=== PATIENT | male | born 1960 | race Caucasian/White ===

== ENCOUNTER 2016-10-24 23:15 | Emergency (ER) | payer OTHER ==
[2016-10-24] MEDS ORDERED: NS 0.9% 1000 ML* 1,000 ML IV ONE (23:24)
[2016-10-24] MEDS ORDERED: Ondansetron INJ* 2 MG/ML VIAL IV ONE (23:24)
[2016-10-24] MEDS ORDERED: Ondansetron INJ* 2 MG/ML VIAL ONE (23:25)
[2016-10-24 23:49] LABS: Hematocrit 27 % (42-52); Hemoglobin 8.6 g/dl (14.0-18.0); Mean Corpuscular HGB Conc 32 g/dl (31-36); Mean Corpuscular Hemoglobin 29 pg (27-31); Mean Corpuscular Volume 90 fL (80-94); Mean Platelet Volume 9 um3 (7.4-10.4); Red Blood Count 2.94 10^6/ul (4.0-5.4); Red Cell Distribution Width 15 % (10.5-15); White Blood Count 17.7 10^3/ul (3.5-10.8)
[2016-10-25 00:04] LABS: ALT 11 U/L (7-52); AST 9 U/L (13-39); Albumin 3.1 g/dL (3.2-5.2); Alkaline Phosphatase 73 U/L (34-104); Anion Gap 9 mmol/L (2-11); BUN/Creatinine Ratio 31.1 (8-20); Blood Urea Nitrogen 38 mg/dL (6-24); C Reactive Protein 8.76 mg/L (< 5.00); CO2 Carbon Dioxide 19 mmol/L (22-32); Calcium 8.1 mg/dL (8.6-10.3); Chloride 109 mmol/L (101-111); EGFR Non-African American 61.4 (>60); Globulin 2.3 g/dL (2-4); Glucose 205 mg/dL (70-100); Lipase < 10 U/L (11.0-82.0); Magnesium 1.8 mg/dL (1.9-2.7); Potassium 4.2 mmol/L (3.5-5.0); Sodium 137 mmol/L (133-145); Total Protein 5.4 g/dL (6.4-8.9)
--- NOTE | 2016-10-25 00:12 | ED ---
Dayana Fonseca SooYoung, scribed for Andreas Rosen MD on 10/24/16 at 2325 . 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 Associated sx: nausea. States he "doesn't feel good." According to , pt has been ill since 2300 last night, but blood in the vomit is new tonight. Occasional EToH use, 1-2x per month. Pt sees Dr. Del Angel. - History of Current Complaint Chief Complaint: EDGIBleed Stated Complaint: DIZZY Hx Obtained From: Patient, Family/Principal Consulting Engineer - , Medical Records Onset/Duration: Started Hours Ago, Still Present Current Severity: Severe Associated Signs and Symptoms: Positive: Hematemesis - Additional Pertinent History Primary Care Physician: BAR - Allergy/Home Medications Allergies/Adverse Reactions: Allergies Allergy/AdvReac Type Severity Reaction Status Date / Time Penicillins Allergy Unknown Unknown Verified 10/24/16 23:51 Reaction Details Atorvastatin AdvReac See Comment Verified 06/06/16 17:40 Codeine AdvReac Vomiting Verified 06/06/16 17:39 PMH/Surg Hx/FS Hx/Imm Hx Previously Healthy: No Endocrine/Hematology History: Reports: Hx Diabetes - pt reports boarderline, diet controlled Denies: Hx Anticoagulant Therapy, Hx Blood Disorders, Hx Blood Transfusions, Hx Bone Marrow Disease, Hx Systemic Lupus Erythematosus, Hx Sickle Cell Disease , Hx Thyroid Disease, Hx Anemia, Hx Unexplained Bleeding, Other Endocrine/ Hematological Disorders Cardiovascular History: Reports: Hx Angina, Hx Angioplasty - OM3 stent 2015, Hx Coronary Artery Disease, Hx Hypercholesterolemia, Hx Hypertension, Hx Peripheral Vascular Disease Denies: Hx Aneurysm, Hx Auto Implanted Cardiovert Defib, Hx Cardiac Arrest, Hx Cardiomegaly, Hx Congenital Heart Disease, Hx Congestive Heart Failure, Hx Deep Vein Thrombosis, Hx Embolism, Hx Hypotension, Hx Pacemaker/ICD, Hx Rheumatic Fever, Hx Valvular Heart Disease, Other Cardiovascular Problems/ Disorders Musculoskeletal History: Reports: Other Musculoskeletal History - right leg broken when young, one leg shorter than other Sensory History: Reports: Hx Contacts or Glasses Opthamlomology History: Reports: Hx Contacts or Glasses Infectious Disease History: Denies: Traveled Outside the [place] in Last 30 Days - Family History Known Family History: Positive: Hypertension - Social History Occupation: Employed Full-time Lives: With Family Alcohol Use: Occasionally Hx Substance Use: Yes Substance Use Type: Reports: Excessive Caffeine Hx Tobacco Use: Yes Smoking Status (MU): Heavy Every Day Tobacco Smoker Type: Cigarettes Have You Smoked in the Last Year: Yes Review of Systems Positive: Vomiting - hemetemesis, Nausea All Other Systems Reviewed And Are Negative: Yes Physical Exam Triage Information Reviewed: Yes Vital Signs On Initial Exam: Initial Vitals Temp Pulse Resp BP Pulse Ox 97.3 F 88 12 74/40 98 10/24/16 23:46 10/24/16 23:46 10/24/16 23:46 10/24/16 23:46 10/24/16 23:46 Vital Signs Reviewed: Yes Appearance: Positive: No Pain Distress, Ill-Appearing Skin: Positive: Warm, Pale Head/Face: Positive: Normal Head/Face Inspection Eyes: Positive: LUIS ENRIQUE ENT: Positive: Hearing grossly normal Neck: Positive: Supple Respiratory/Lung Sounds: Positive: Breath Sounds Present Cardiovascular: Positive: Tachycardia Abdomen Description: Positive: Soft, Other: - mild diffusev upper abd tenderness Bowel Sounds: Positive: Present - stool guaic positive Musculoskeletal: Positive: Strength/ROM Intact Neurological: Positive: Sensory/Motor Intact, Alert, Oriented to Person Place, Time Psychiatric: Positive: Affect/Mood Appropriate Diagnostics - Vital Signs Vital Signs Temp Pulse Resp BP Pulse Ox 10/24/16 23:46 97.3 F 88 12 74/40 98 - Laboratory Lab Results: Lab Results 10/24/16 10/24/16 10/24/16 Range/Units 23:35 23:35 23:35 WBC 17.7 H (3.5-10.8) 10^3/ul RBC 2.94 L (4.0-5.4) 10^6/ul Hgb 8.6 L (14.0-18.0) g/dl Hct 27 L (42-52) % MCV 90 (80-94) fL MCH 29 (27-31) pg MCHC 32 (31-36) g/dl RDW 15 (10.5-15) % Plt Count 289 (150-450) 10^3/ul MPV 9 (7.4-10.4) um3 Neut % (Auto) 71.1 (38-83) % Lymph % (Auto) 19.1 L (25-47) % [place] % (Auto) 6.8 (1-9) % Eos % (Auto) 2.5 (0-6) % Baso % (Auto) 0.5 (0-2) % Absolute Neuts (auto) 12.6 H (1.5-7.7) 10^3/ul Absolute Lymphs (auto) 3.4 (1.0-4.8) 10^3/ul Absolute Monos (auto) 1.2 H (0-0.8) 10^3/ul Absolute Eos (auto) 0.4 (0-0.6) 10^3/ul Absolute Basos (auto) 0.1 (0-0.2) 10^3/ul Absolute Nucleated RBC 0 10^3/ul Nucleated RBC % 0 Sodium 137 (133-145) mmol/L Potassium 4.2 (3.5-5.0) mmol/L Chloride 109 (101-111) mmol/L Carbon Dioxide 19 L (22-32) mmol/L Anion Gap 9 (2-11) mmol/L BUN 38 H (6-24) mg/dL Creatinine 1.22 H (0.67-1.17) mg/dL Est GFR ( Amer) 79.0 (>60) Est GFR (Non-Af Amer) 61.4 (>60) BUN/Creatinine Ratio 31.1 H (8-20) Glucose 205 H (70-100) mg/dL Lactic Acid 2.6 H* (0.5-2.0) mmol/L Calcium 8.1 L (8.6-10.3) mg/dL Magnesium 1.8 L (1.9-2.7) mg/dL Total Bilirubin 0.30 (0.2-1.0) mg/dL AST 9 L (13-39) U/L ALT 11 (7-52) U/L Alkaline Phosphatase 73 (34-104) U/L C-Reactive Protein 8.76 H (< 5.00) mg/L Total Protein 5.4 L (6.4-8.9) g/dL Albumin 3.1 L (3.2-5.2) g/dL Globulin 2.3 (2-4) g/dL Albumin/Globulin Ratio 1.3 (1-3) Lipase < 10 L (11.0-82.0) U/L Result Diagrams: 10/24/16 23:35 10/24/16 23:35 Lab Statement: Any lab studies that have been ordered have been reviewed, and results considered in the medical decision making process. - Radiology CXR Xray Interpretation: No Acute Changes Radiology Interpretation Completed By: ED Physician - EKG 1 EKG Rhythm: Sinus Rhythm Re-Evaluation - Re-Evaluation First Eval Comment: pt with ugi bleed, fluid resuscitated, no gi personal trainer. call to nori andrade who acceots pt for transfer GIGU Course/Dx - Diagnoses Provider Diagnoses: GI bleed - Physician Notifications Instructed by Provider To: Transfer Reason For Transfer: Specialty available at [facility] [place] but not personal trainer. - Critical Care Time Critical Care Time: 30-74 min Discharge - Discharge Plan Condition: Critical Disposition: TRANS HIGHER LVL OF CARE FAC Discharge Disposition Comment: Speciality (GI) not on-call Referrals: Tracey Younger [Primary Care Provider] - The documentation as recorded by the Dayana saxena SooYoung accurately reflects the service I personally performed and the decisions made by , Andreas Rosen MD.
[2016-10-25 04:21] LABS: Urine Bilirubin Negative (Negative); Urine Glucose Negative (Negative); Urine Nitrite Negative (Negative)
[2016-10-25 05:34] VITALS: BP 114/55
--- NOTE | 2016-10-25 07:16 | RAD ---
INDICATION: GI bleed COMPARISON: April 17, 2004 TECHNIQUE: An AP portable view obtained at 2355 hours is submitted. FINDINGS: Bones/Soft Tissues: There are no acute bony findings. Cardiomediastinal: The cardiomediastinal silhouette is normal. Lungs: There are no infiltrates. Pleura: There are no pleural effusions. Other: None IMPRESSION: NO ACTIVE DISEASE.
== END 2016-10-25 05:21 | disposition short-term general hospital (02) ==
LOC: ED 23:15
DX: K92.2 Gastrointestinal hemorrhage, unspecified (principal); K92.0 Hematemesis; R42 Dizziness and giddiness; R11.2 Nausea with vomiting, unspecified; F17.210 Nicotine dependence, cigarettes, uncomplicated
CPT/HCPCS: 36415; 71010; 80053; 81003; 83605; 83690; 83735; 85025; 86140; 86850; 86900; 86901; 86922; 93005; 96374; 96375; 99285; J2405; P9016

== ENCOUNTER 2019-04-02 09:56 | Day surgery (SDC) | payer OTHER ==
[~2019-04-02 09:56] MED LIST: Buffered Lidocaine 1% SYRIN* 1 ML/SYRINGE INTRADERM ONE; Dexamethasone TAB* 4 MG PO ONE; Famotidine IV* 10 MG/ML 2 ML (20 mg) IV ONE; Lactated Ringers 1000 ML Bag* 1,000 ML IV SCH; Ondansetron ODT TAB* 4 MG PO ONE
[2019-04-02] MEDS ORDERED: Bupivacaine 0.25% SDV PF* 10 ML VIAL INJ ONE (10:50)
[2019-04-02] MEDS ORDERED: Clindamycin 900 MG/D5W BAG(*) 900 MG/50 ML BAG IVPB ONE (10:58)
[2019-04-02] MEDS ORDERED: Lidocaine 1% MPF* 2 ML VIAL ONE (11:05)
[2019-04-02] MEDS ORDERED: Lidocaine 1% w EPI 1:200,000* SDV 30 ML VIAL ONE (11:06)
[2019-04-02] MEDS ORDERED: Betamethasone INJ* 6 MG/ML 5 ML VIAL (30 MG) ONE (11:06)
[2019-04-02] MEDS ORDERED: Sodium Bicarbonate 8.4% IV* 50 ML VIAL ONE (11:06)
[2019-04-02 12:26] VITALS: BP 113/79
--- NOTE | 2019-04-02 20:48 | OP ---
DATE OF OPERATION: 04/02/19 [facility] DATE OF : 58 SURGEON: Dorian Malone MD ELECTRIC MOTOR ASSEMBLER AND TESTER: None. ANESTHESIOLOGIST: None. ANESTHESIA: Local only with 1% lidocaine with epinephrine and bicarbonate. PRE-OP DIAGNOSES: 1. Left middle and ring trigger fingers. 2. Right ring trigger finger. POST-OP DIAGNOSES: 1. Left middle and ring trigger fingers. 2. Right ring trigger finger. OPERATIVE PROCEDURE: 1. Left middle trigger finger release. 2. Left ring trigger finger release. 3. Right ring trigger finger corticosteroid injection. INDICATIONS: Mr. Foster has the aforementioned trigger fingers. We talked about his treatment options. He elected to proceed with surgery. ESTIMATED BLOOD LOSS: 2 mL. COMPLICATIONS: None. FINDINGS: See above and below. DESCRIPTION OF PROCEDURE: Mr. Foster was seen in the preoperative holding area. The correct site, side, and procedure were identified. We came back to the operating room where the arm was prepped and draped in the usual fashion and a time-out was performed. Please note that I had anesthetized Jonatan's fingers with 1% lidocaine with epinephrine and bicarbonate in the preoperative holding area. Additionally, at the same time as I was injecting the local anesthetic, I did inject the right ring finger A1 soto with 1 mL of 1% lidocaine and 6 mg of betamethasone all around the A1 soto and the flexor tendon sheath of that right ring finger in the preoperative holding area. Once we were back in the operating room, I went ahead and first made an incision in the distal palmar crease over the left middle finger A1 soto. I then made a longitudinal incision over the left ring finger A1 soto. Full- thickness flaps were raised off the tendon sheath. Ragnell retractors were first placed in the middle finger. I went ahead and released the A1 soto in its entirety using the 15-blade and the tenotomy scissors. The release was completed distally and proximally. I then placed the Ragnell retractors in my incision over the ring finger A1 soto. In similar fashion, I released the A1 soto with the combination of the 15-blade and the tenotomy scissors. The fascia proximal to the A1 soto was released as well. I did release just the leading edge of the A2 soto as well. At this point, I had him open and close the hand multiple times, we could not induce any triggering. Everything was looking very good. We irrigated out the wounds and the skin was closed with 4-0 nylon sutures. Soft dressing was applied and he was taken to the recovery room in stable condition. [id number]/[facility] #: [id number] VALENTINO
== END 2019-04-02 12:24 | disposition home or self-care (01) ==
LOC: OREAST 09:56
PROVIDERS: ATTEND Orthopaedic Surgery Hand Surgery
DX: M65.332 Trigger finger, left middle finger (principal); M65.342 Trigger finger, left ring finger; E11.9 Type 2 diabetes mellitus without complications; Z79.84 Long term (current) use of oral hypoglycemic drugs; E78.5 Hyperlipidemia, unspecified; M19.90 Unspecified osteoarthritis, unspecified site; Z87.891 Personal history of nicotine dependence; I51.9 Heart disease, unspecified
CPT/HCPCS: J0702; J2001; J3490

== ENCOUNTER 2019-06-26 10:30 | Emergency (ER) | payer OTHER, BC ==
[2019-06-26 10:54] VITALS: BP 128/73
[2019-06-26 11:31] LABS: Influenza A Molecular Negative (Negative); Influenza B Molecular Negative (Negative)
--- NOTE | 2019-06-26 11:48 | UC ---
UC General HPI - HPI Summary HPI Summary: 3 DAYS OF WORSENING FATIGUE, DIFFUSE BODY ACHES, CHILLS, CRAMPY ABDOMINAL PAIN AND WATERY DIARRHEA. IS NAUSEATED AND HAD A COUPLE EPISODES OF VOMITING. MILD COUGH. IS HYDRATING WELL BUT UNABLE TO EAT MUCH IT TRIGGERS DIARRHEA. IS A DIABETIC WITH ONLY MODERATE CONTROL. STATES LAST A1C 6 MONTHS AGO WAS 7.6. [facility] - History of Current Complaint Chief Complaint: UCGeneralIllness Stated Complaint: VOMITING Time Seen by Provider: 06/26/19 10:41 Hx Obtained From: Patient Onset/Duration: Gradual Onset, Lasting Days, Still Present Timing: Constant Onset Severity: Moderate Current Severity: Moderate Pain Intensity: 2 Associated Signs & Symptoms: Positive: Abdominal Pain, Decreased Oral Intake, Nausea. Negative: Back Pain, Chest Pain, Fever - Allergy/Home Medications Allergies/Adverse Reactions: Allergies Allergy/AdvReac Type Severity Reaction Status Date / Time atorvastatin Allergy Itching Verified 06/26/19 11:05 codeine Allergy Vomiting Verified 06/26/19 11:05 Penicillins Allergy Unknown Verified 06/26/19 11:05 Reaction Details PMH/Surg Hx/FS Hx/Imm Hx Endocrine History: Diabetes Cardiovascular History: Cardiac Disease - STENTS, Myocardial Infarction Other History Of: Negative For: Anticoagulant Therapy - Surgical History Surgical History: None Surgery Procedure, Year, and Place: Stent placed 2016 related to [place]. Right leg stent placed 2016 - Family History Known Family History: Positive: Hypertension - Social History Alcohol Use: Weekly Alcohol Amount: 2-3 drinks Substance Use Type: None Smoking Status (MU): Former Smoker Type: Cigarettes Have You Smoked in the Last Year: No Household Exposure Type: Cigarettes - Immunization History Most Recent Influenza Vaccination: 2014 Most Recent Tetanus Shot: "long time ago, probably before i got out of the [employer] in 1999" Most Recent Pneumonia Vaccination: 2013 Review of Systems All Other Systems Reviewed And Are Negative: Yes Constitutional: Positive: Fatigue, Other - OVERALL MALAISE Respiratory: Positive: Cough - MILD Cardiovascular: Positive: Negative Gastrointestinal: Positive: Abdominal Pain, Vomiting, Diarrhea, Nausea Genitourinary: Positive: Negative Physical Exam Triage Information Reviewed: Yes Appearance: Well-Nourished, Pain Distress - MILD Vital Signs: Initial Vital Signs Temp 97.6 F 06/26/19 10:47 Pulse 78 06/26/19 10:47 Resp 16 06/26/19 10:47 BP 128/73 06/26/19 10:47 Pulse Ox 97 06/26/19 10:47 Vital Signs Reviewed: Yes Eyes: Positive: Conjunctiva Clear ENT: Positive: Hearing grossly normal, Pharynx normal, TMs normal Neck: Positive: Supple, Nontender, No Lymphadenopathy Respiratory Exam: Normal Cardiovascular Exam: Normal Abdomen Description: Positive: Soft, Other: - RLQ TENDERNESS. NO REBOUND OR RIGIDITY. NEG PSOAS, NEG OBTURATOR. Negative: CVA Tenderness (R), CVA Tenderness (L), Distended, Guarding Bowel Sounds: Positive: Present Musculoskeletal: Positive: No Edema Neurological: Positive: Alert Psychological: Positive: Age Appropriate Behavior Skin: Negative: Rashes Diagnostics - Laboratory Lab Results: FLU NEG FSBG 167 Course/Dx - Course Course Of Treatment: PATIENT WITH WORSENING ABDOMINAL PAIN, FATIGUE, MALAISE AND PERSISTENT WATERY DIARRHEA. FSBG 167. FLU NEG. HE REQUIRES A HIGHER LEVEL OF SERVICE THAN WHAT IS AVAILABLE IN THE URGENT CARE. I RECOMMENDED HE GO DIRECTLY TO THE [facility] [place] HOWEVER HE IS CONCERNED THE VISIT WILL NOT BE COVERED BY HIS INSURANCE HE USES THE [place]. STATES HIS WILL DRIVE HIM TO THE [facility] IN [place]. - Diagnoses Provider Diagnosis: RLQ abdominal pain Discharge ED - Sign-Out/Discharge Documenting (check all that apply): Patient Departure All imaging exams completed and their final reports reviewed: No Studies - Discharge Plan Condition: Stable Disposition: HOME-RECOMMEND TO ED Patient Education Materials: Abdominal Pain (ED) Referrals: Tracey Younger [Primary Care Provider] - If Needed Additional Instructions: I'M CONCERNED ABOUT YOUR RIGHT LOWER QUADRANT PAIN IN THE SETTING OF YOUR WORSENING FATIGUE, MALAISE AND BODY ACHES. YOUR FINGERSTICK BLOOD GLUCOSE TODAY WAS 167. FLU SWAB NEGATIVE. YOU WOULD BENEFIT FROM FURTHER EVALUATION WITH LAB WORK AND POSSIBLY IMAGING. YOU REQUIRE A HIGHER LEVEL OF SERVICE THAN WHAT IS AVAILABLE IN THE URGENT CARE. RECOMMEND EVALUATION IN THE EMERGENCY ROOM. - Billing Disposition and Condition Condition: STABLE Disposition: Home-Recommend to ED
== END 2019-06-26 11:58 | disposition home health service (06) ==
LOC: UCEAST 10:30
DX: R10.31 Right lower quadrant pain (principal); R19.7 Diarrhea, unspecified; R11.2 Nausea with vomiting, unspecified; R05 Cough; R53.83 Other fatigue; R53.81 Other malaise; E11.9 Type 2 diabetes mellitus without complications; I25.2 Old myocardial infarction; Z88.0 Allergy status to penicillin; Z88.5 Allergy status to narcotic agent; Z88.8 Allergy status to other drugs, medicaments and biological substances; Z95.5 Presence of coronary angioplasty implant and graft; Z87.891 Personal history of nicotine dependence
CPT/HCPCS: 99212; G0463

== ENCOUNTER 2019-06-26 12:24 | Emergency (ER) | payer OTHER, BC ==
[2019-06-26 13:31] LABS: ABS Eosinophils 0.1 10^3/ul (0-0.6); ABS Lymphocytes 1.5 10^3/ul (1.0-4.8); ABS Monocytes 1.3 10^3/ul (0-0.8); ABS Neutrophils 9.1 10^3/ul (1.5-7.7); Eosinophil % 0.4 %; Hematocrit 47 % (42-52); Hemoglobin 15.4 g/dL (14.0-18.0); Lymphocyte % 12.5 %; Mean Corpuscular HGB Conc 33 g/dL (31-36); Mean Corpuscular Hemoglobin 29 pg (27-31); Mean Corpuscular Volume 89 fL (80-94); Mean Platelet Volume 9.5 fL (7.4-10.4); Nucleated Red Blood Cells % 0.2; Platelet Count 226 10^3/uL (150-450); Red Blood Count 5.29 10^6 /uL (4.18-5.48); Red Cell Distribution Width 15 % (10-15); White Blood Count 11.9 10^3/uL (3.5-10.8)
[2019-06-26 13:52] LABS: ALT 14 U/L (7-52); AST 17 U/L (13-39); Albumin 4.3 g/dL (3.2-5.2); Alkaline Phosphatase 112 U/L (34-104); Anion Gap 11 mmol/L (2-11); BUN/Creatinine Ratio 18.9 (8-20); Blood Urea Nitrogen 25 mg/dL (6-24); C Reactive Protein 126.37 mg/L (<8.01); CO2 Carbon Dioxide 26 mmol/L (22-32); Calcium 10.4 mg/dL (8.6-10.3); Chloride 99 mmol/L (101-111); EGFR African American 67.2 (>60); EGFR Non-African American 55.5 (>60); Globulin 4.1 g/dL (2-4); Glucose 150 mg/dL (70-100); Potassium 4.5 mmol/L (3.5-5.0); Sodium 136 mmol/L (135-145); Total Protein 8.4 g/dL (6.4-8.9)
[2019-06-26 14:18] LABS: Troponin I 0.06 ng/mL (<0.03)
[2019-06-26] MEDS ORDERED: NS 0.9% 1000 ML** 1,000 ML IV ONE ×2 (16:19→16:56)
--- NOTE | 2019-06-26 16:20 | ED ---
Abdominal Pain/Male - HPI Summary HPI Summary: Patient is a 58-year-old male who presents emergency department for right lower quadrant abdominal pain, vomiting and diarrhea 3 days. Denies sick contacts. Denies associated symptoms of fever, chest pain, cough, shortness of breath. Past medical history of hypertension, diabetes, hyperlipidemia, CAD. Symptoms are moderate in severity. No current modifying factors. - History of Current Complaint Chief Complaint: EDAbdPain Stated Complaint: ABD PAIN PER PT Time Seen by Provider: 06/26/19 16:11 Hx Obtained From: Patient Pain Intensity: 2 - Allergies/Home Medications Allergies/Adverse Reactions: Allergies Allergy/AdvReac Type Severity Reaction Status Date / Time atorvastatin Allergy Itching Verified 06/26/19 11:05 codeine Allergy Vomiting Verified 06/26/19 11:05 Penicillins Allergy Unknown Verified 06/26/19 11:05 Reaction Details PMH/Surg Hx/FS Hx/Imm Hx Previously Healthy: Yes Endocrine/Hematology History: Reports: Hx Diabetes Denies: Hx Anticoagulant Therapy, Hx Blood Disorders, Hx Blood Transfusions, Hx Bone Marrow Disease, Hx Systemic Lupus Erythematosus, Hx Sickle Cell Disease , Hx Thyroid Disease, Hx Anemia, Hx Unexplained Bleeding, Other Endocrine/ Hematological Disorders Cardiovascular History: Reports: Hx Angina, Hx Angioplasty - OM3 stent 2015, Hx Coronary Artery Disease, Hx Hypercholesterolemia, Hx Peripheral Vascular Disease Denies: Hx Aneurysm, Hx Auto Implanted Cardiovert Defib, Hx Cardiac Arrest, Hx Cardiomegaly, Hx Congenital Heart Disease, Hx Congestive Heart Failure, Hx Deep Vein Thrombosis, Hx Embolism, Hx Hypotension, Hx Hypertension, Hx Pacemaker /ICD, Hx Rheumatic Fever, Hx Valvular Heart Disease, Other Cardiovascular Problems/Disorders Musculoskeletal History: Reports: Other Musculoskeletal History - right leg broken when young, one leg shorter than other Sensory History: Reports: Hx Contacts or Glasses Opthamlomology History: Reports: Hx Contacts or Glasses - Surgical History Surgery Procedure, Year, and Place: Stent placed 2016 related to [place]. Right leg stent placed 2017 Infectious Disease History: No Infectious Disease History: Denies: Traveled Outside the [place] in Last 30 Days - Family History Known Family History: Positive: Hypertension, Non-Contributory - Social History Occupation: Employed Full-time Lives: With Family Alcohol Use: Occasionally Alcohol Amount: 2-3 drinks Hx Substance Use: Yes Substance Use Type: Reports: None Hx Tobacco Use: Yes Smoking Status (MU): Former Smoker Type: Cigarettes Have You Smoked in the Last Year: No Review of Systems Constitutional: Negative Negative: Fever Cardiovascular: Negative Negative: Chest Pain Respiratory: Negative Negative: Shortness Of Breath Positive: Abdominal Pain, Vomiting, Diarrhea Genitourinary: Negative Negative: dysuria, flank pain Neurological: Negative All Other Systems Reviewed And Are Negative: Yes Physical Exam Triage Information Reviewed: Yes Vital Signs On Initial Exam: Initial Vitals Temp Pulse Resp BP Pulse Ox 97.2 F 76 18 132/77 98 06/26/19 12:32 06/26/19 12:32 06/26/19 12:32 06/26/19 12:32 06/26/19 12:32 Vital Signs Reviewed: Yes Appearance: Positive: Well-Appearing - Patient lying on bed in no acute distress. Skin: Positive: Warm, Dry Head/Face: Positive: Normal Head/Face Inspection Eyes: Positive: Normal, EOMI, LUIS NERIQUE Neck: Positive: Supple Respiratory/Lung Sounds: Positive: Clear to Auscultation, Breath Sounds Present Cardiovascular: Positive: Normal, RRR Abdomen Description: Positive: Other: - Abdomen is soft with marked tenderness and guarding to right lower quadrant. Neurological: Positive: Normal, CN Intact II-III Psychiatric: Positive: Affect/Mood Appropriate Procedures - Sedation Patient Received Moderate/Deep Sedation with Procedure: No Diagnostics - Vital Signs Vital Signs Temp Pulse Resp BP Pulse Ox 06/26/19 14:16 97.8 F 76 148 138/72 99 06/26/19 12:32 97.2 F 76 18 132/77 98 - Laboratory Lab Results: Lab Results 06/26/19 06/26/19 06/26/19 Range/Units 13:16 13:16 13:16 WBC 11.9 H (3.5-10.8) 10^3/uL RBC 5.29 (4.18-5.48) 10^6 /uL Hgb 15.4 (14.0-18.0) g/dL Hct 47 (42-52) % MCV 89 (80-94) fL MCH 29 (27-31) pg MCHC 33 (31-36) g/dL RDW 15 (10-15) % Plt Count 226 (150-450) 10^3/uL MPV 9.5 (7.4-10.4) fL Neut % (Auto) 75.9 % Lymph % (Auto) 12.5 % [place] % (Auto) 10.9 % Eos % (Auto) 0.4 % Baso % (Auto) 0.3 % Absolute Neuts (auto) 9.1 H (1.5-7.7) 10^3/ul Absolute Lymphs (auto) 1.5 (1.0-4.8) 10^3/ul Absolute Monos (auto) 1.3 H (0-0.8) 10^3/ul Absolute Eos (auto) 0.1 (0-0.6) 10^3/ul Absolute Basos (auto) 0.0 (0-0.2) 10^3/ul Absolute Nucleated RBC 0.0 10^3/ul Nucleated RBC % 0.2 Sodium 136 (135-145) mmol/L Potassium 4.5 (3.5-5.0) mmol/L Chloride 99 L (101-111) mmol/L Carbon Dioxide 26 (22-32) mmol/L Anion Gap 11 (2-11) mmol/L BUN 25 H (6-24) mg/dL Creatinine 1.32 H (0.67-1.17) mg/dL Est GFR ( Amer) 67.2 (>60) Est GFR (Non-Af Amer) 55.5 (>60) BUN/Creatinine Ratio 18.9 (8-20) Glucose 150 H (70-100) mg/dL Lactic Acid 1.9 (0.5-2.0) mmol/L Calcium 10.4 H (8.6-10.3) mg/dL Total Bilirubin 0.50 (0.2-1.0) mg/dL AST 17 (13-39) U/L ALT 14 (7-52) U/L Alkaline Phosphatase 112 H (34-104) U/L Troponin I 0.06 H* (<0.03) ng/mL C-Reactive Protein 126.37 H (<8.01) mg/L Total Protein 8.4 (6.4-8.9) g/dL Albumin 4.3 (3.2-5.2) g/dL Globulin 4.1 H (2-4) g/dL Albumin/Globulin Ratio 1.0 (1-3) Lipase 25 (11.0-82.0) U/L Result Diagrams: 06/26/19 13:16 06/26/19 13:16 Lab Statement: Any lab studies that have been ordered have been reviewed, and results considered in the medical decision making process. Abdominal Pain Male Course/Dx - Course Course Of Treatment: Patient presenting with right lower quadrant pain, vomiting and diarrhea. Exam concerning for appendicitis. Patient had labs in triage show mild leukocytosis of 11.9, CRP of 126, elevated troponin of 0.06. Patient denies chest pain or shortness of breath. ECG done at 1613 shows a sinus rhythm of 69 bpm, normal axis, no STEMI, similar to prior tracing. Patient started on IV fluids. He declines analgesics and antiemetics. Pending CT abdomen and pelvis. CT abd./pelvis per radiology: IMPRESSION: #. While the appendix is not discretely visualized, there is no inflammatory change in the. right lower quadrant or region of the tip of the cecum to suggest presence of an acute. inflammatory process. #. No acute abdominal pelvic pathologic process evident. On re-exam pt. is still having marked tenderness to RLQ. 1745 : Case discussed with Dr. Ku, general surgery. He can see pt. in ED in about an hour. Second troponin improved to 0.03. - Diagnoses Differential Diagnosis/HQI/PQRI: Appendicitis, Bowel Obstruction, Constipation, Diverticulitis, Renal Colic Provider Diagnoses: Abdominal pain Discharge ED - Sign-Out/Discharge Documenting (check all that apply): Sign-Out Patient Signing out patient TO: Devon Schaefer - Discharge Plan Referrals: Tracey Younger [Primary Care Provider] -
[2019-06-26] MEDS ORDERED: Iodixanol* (CONTRAST) 320 MG/ML 100 ML SDV IV ONE (16:35)
[2019-06-26 17:46] LABS: Troponin I 0.03 ng/mL (<0.03)
--- NOTE | 2019-06-26 18:20 | ED ---
Progress - Progress Note Progress Note: Patient evaluated by general surgery, Dr. Ku, who states the patient has no acute medical pathology requiring intervention at this time. Patient was given information to follow up with Dr. Ku at his clinic for further evaluation and management of his symptoms. Patient is stable and is to be discharged home with outpatient follow-up. Course/Dx - Course Course Of Treatment: Patient presenting with right lower quadrant pain, vomiting and diarrhea. Exam concerning for appendicitis. Patient had labs in triage show mild leukocytosis of 11.9, CRP of 126, elevated troponin of 0.06. Patient denies chest pain or shortness of breath. ECG done at 1613 shows a sinus rhythm of 69 bpm, normal axis, no STEMI, similar to prior tracing. Patient started on IV fluids. He declines analgesics and antiemetics. Pending CT abdomen and pelvis. CT abd./pelvis per radiology: IMPRESSION: #. While the appendix is not discretely visualized, there is no inflammatory change in the. right lower quadrant or region of the tip of the cecum to suggest presence of an acute. inflammatory process. #. No acute abdominal pelvic pathologic process evident. On re-exam pt. is still having marked tenderness to RLQ. 1745 : Case discussed with Dr. Ku, general surgery. He can see pt. in ED in about an hour. Second troponin improved to 0.03. - Diagnoses Provider Diagnoses: Abdominal pain Discharge ED - Sign-Out/Discharge Documenting (check all that apply): Patient Departure - Discharge Plan Condition: Stable Disposition: HOME Patient Education Materials: Acute Abdominal Pain (ED) Forms: *Work Release Referrals: Lam Ku MD [Medical Doctor] - 3 Days Tracey Younger [Primary Care Provider] - 3 Days Additional Instructions: You were seen in the emergency department for abdominal pain. There is no evidence of acute pathology requiring intervention at this time or surgery. Please follow-up with Dr. Ku with General surgery for further evaluation and management of your symptoms. Please return to the emergency department immediately if you develop any new or worsening symptoms. - Billing Disposition and Condition Condition: STABLE Disposition: Home
[2019-06-26] MEDS ORDERED: Lactated Ringers 1000 ML Bag* 1,000 ML IV ONE (20:00)
[2019-06-26] MEDS ORDERED: Lactated Ringers 1000 ML Bag* 1,000 ML IV SCH (20:00)
--- NOTE | 2019-06-26 20:07 | CONS ---
[facility]: [facility]; Tracey Younger NP; Dr. Landon Del Angel SURGICAL CONSULTATION REPORT: DATE OF CONSULT: 06/26/19 PRIMARY CARE DOCTOR: Tracey Younger NP HISTORY OF PRESENT ILLNESS: Mr. Foster is a 58-year-old gentleman who presented to urgent care earlier today with 3-day history of vomiting, diarrhea, and abdominal pain. He was seen in the emergency ro om and felt to have right lower quadrant pain more than elsewhere and was referred to the ER for fermín tional workup, which included labs and a CAT scan. The CAT scan was reviewed by me. A report was peguero ggestive of no visualization of the appendix and Surgery was consulted. The patient describes 3-day history of decreased appetite, loose bowel movements almost watery to the point where he would almost be incontinent, thinking he was passing flatus when he was having moveme nts. This is new for him. This has been accompanied with lower abdominal pain, right side more than left, along with decreased appetite. The patient states he has had chills, but no fever. Pain is r elieved with rest and sleep. He is not requiring any pain medication other than Tylenol and in fact, he has not had any narcotics while in the emergency room. PAST MEDICAL HISTORY: Diabetes, hypertension, hypercholesterolemia. PAST SURGICAL HISTORY: No abdominal surgeries. He has got cardiac stents as well as extremity surge kee. MEDICATION LIST: Includes: 1. Metformin. 2. Crestor. 3. Effient. 4. Nitroglycerin as needed. 5. Metoprolol. 6. Pletal. 7. Aspirin 81 mg. ALLERGIES: Allergy list reviewed, which includes ATORVASTATIN, CODEINE and PENICILLIN. FAMILY HISTORY: Interesting history of possible no appendix on evaluation of his father when he unde rwent surgery for a gallbladder. No history of Crohn's disease or ulcerative colitis. SOCIAL HISTORY: He lives with his . He works night time nanny. He denies smoking. PHYSICAL EXAM: The patient is afebrile. Vital signs are stable. Alert and oriented x3, in no appar ent distress. Head, Ears, Eyes, Nose, and Throat: Normocephalic, atraumatic. Sclerae anicteric. Mu cous membranes are moist. Neck: No lymphadenopathy. Abdomen: Soft, nondistended. Mild tenderness at the right lower quadrant with negative tenderness to percussion. No rebound. No hernias. Mild CV A tenderness on the right. No skin lesions. No groin hernias. Testicles are normally descended wit hout lesion. Rectal exam not performed. Extremities: Within normal limits with no pitting edema. N egative psoas sign. DIAGNOSTIC STUDIES/LAB DATA: Labs reviewed show a white count of 11.9, H and H 15/47 which is signif icantly above the patient's baseline. Metabolic panel reviewed. Elevated CRP of 126. CT scan of the abdomen and pelvis reviewed, no free fluid, no free air, no inflammation of right lowe r quadrant, no appendix is discretely visualized, no hydronephrosis. IMPRESSION AND PLAN: Abdominal pain of unclear etiology, most remarkable is the patient's loose wate ry bowel movements. I believe the patient is suffering with gastroenteritis and additional dehydrati on secondary to this. I recommend hydration and reintroduction of foods. No surgical intervention a t this time. I do not believe the patient is suffering with appendicitis or other surgical entity. I have given him to follow up my office if pain persists. We could work him up for other items since the patient does have family history of gallbladder disease. This is a possibility but more u nlikely. I have discussed this with the emergency room group. [id number]/[facility] #: [id number]
[2019-06-26 21:10] VITALS: BP 120/69
[2019-06-26 21:53] LABS: Urine Appearance Clear; Urine Bilirubin Negative (Negative); Urine Blood 2+ (Negative); Urine Color Yellow; Urine Glucose Negative (Negative); Urine Ketones 2+ (Negative); Urine Nitrite Negative (Negative); Urine Protein 1+(30 mg/dL) (Negative); Urine Specific Gravity 1.047 (1.010-1.030); Urine Urobilinogen Negative (Negative)
[2019-06-26 21:55] LABS: Urine Bacteria Absent (Absent); Urine Red Blood Cell 1+(3-5/hpf) (Absent); Urine White Blood Cell Absent (Absent)
== END 2019-06-26 21:10 | disposition home or self-care (01) ==
LOC: ED 12:24
DX: R10.31 Right lower quadrant pain (principal); E11.9 Type 2 diabetes mellitus without complications; I25.10 Atherosclerotic heart disease of native coronary artery without angina pectoris; E78.00 Pure hypercholesterolemia, unspecified; E78.5 Hyperlipidemia, unspecified; I10 Essential (primary) hypertension; I25.2 Old myocardial infarction; Z87.891 Personal history of nicotine dependence; Z95.5 Presence of coronary angioplasty implant and graft; Z79.82 Long term (current) use of aspirin; Z79.84 Long term (current) use of oral hypoglycemic drugs; Z79.899 Other long term (current) drug therapy; Z88.5 Allergy status to narcotic agent; Z88.0 Allergy status to penicillin; Z88.8 Allergy status to other drugs, medicaments and biological substances
CPT/HCPCS: 36415; 74177; 80053; 81003; 81015; 83605; 83690; 84484; 85025; 86140; 93005; 96360; 96361; 99283; Q9967

== ENCOUNTER 2019-08-17 13:15 | Emergency (ER) | payer BC, OTHER ==
[2019-08-17 13:26] VITALS: BP 90/77
--- NOTE | 2019-08-17 13:46 | UC ---
Abdominal Pain Male HPI - HPI Summary HPI Summary: Pt presents with c/o sudden onset of abdominal and low back pain that began yesterday. Pt reports that he vomited "large amount of dark fluid ~ a gallon". Pt has HX of esophageal varices and GI bleed. Pt states that he went to [place] ER prior to arrival to and "did not want to wait". - History of Current Complaint Chief Complaint: UCGI Stated Complaint: VOMITING Time Seen by Provider: 08/17/19 13:32 Hx Obtained From: Patient Onset/Duration: Sudden Onset, Still Present - still has low back discomfort. Has not vomited, appetite is wnl, pt is voiding, and has had BM. Severity Initially: Moderate Severity Currently: Mild Pain Intensity: 3 Location: Diffuse Radiates: No Radiates to: Back Character: Aching, Dull Aggravating Factor(s): Movement Alleviating Factor(s): Rest Associated Signs And Symptoms: Positive: Back Pain, Nausea, Vomiting - x 1, Other - Risk Factors Testicular Torsion: Negative Cardiac Risk Factors: Hypertension, Diabetes - Allergies/Home Medications Allergies/Adverse Reactions: Allergies Allergy/AdvReac Type Severity Reaction Status Date / Time atorvastatin Allergy Itching Verified 08/17/19 13:20 codeine Allergy Vomiting Verified 08/17/19 13:20 Penicillins Allergy Unknown Verified 08/17/19 13:20 Reaction Details PMH/Surg Hx/FS Hx/Imm Hx Previously Healthy: Yes Endocrine History: Diabetes Cardiovascular History: Cardiac Disease, Hypertension GI/ History: Gastrointestional Bleed Other History Of: Negative For: Anticoagulant Therapy - Surgical History Surgical History: Yes Surgery Procedure, Year, and Place: Stent placed 2016 related to [place]. Right leg stent placed 2017 - Family History Known Family History: Positive: Hypertension, Non-Contributory - Social History Occupation: Employed Full-time Lives: With Family Alcohol Use: Occasionally Alcohol Amount: 2-3 drinks Substance Use Type: None Smoking Status (MU): Former Smoker Type: Cigarettes Have You Smoked in the Last Year: No When Did the Patient Quit Smoking/Using Tobacco: 2015 Household Exposure Type: Cigarettes - Immunization History Most Recent Influenza Vaccination: 2014 Most Recent Tetanus Shot: "long time ago, probably before i got out of the [employer] in 1999" Most Recent Pneumonia Vaccination: 2013 Vaccination Up to Date: No Review of Systems All Other Systems Reviewed And Are Negative: Yes Constitutional: Positive: Negative Skin: Positive: Negative Eyes: Positive: Negative ENT: Positive: Negative Respiratory: Positive: Negative Cardiovascular: Positive: Negative Gastrointestinal: Positive: Abdominal Pain, Vomiting - X 1 on 08/16/19 Motor: Positive: Negative Neurovascular: Positive: Negative Musculoskeletal: Positive: Negative Neurological: Positive: Negative Psychological: Positive: Negative Is Patient Immunocompromised?: No Physical Exam Triage Information Reviewed: Yes Appearance: Well-Appearing, No Pain Distress, Well-Nourished Vital Signs: Initial Vital Signs Temp 97.4 F 08/17/19 13:22 Pulse 71 08/17/19 13:22 Resp 14 08/17/19 13:22 BP 90/77 08/17/19 13:22 Pulse Ox 100 08/17/19 13:22 Vital Signs Reviewed: Yes Eye Exam: Normal ENT Exam: Normal Dental Exam: Normal Neck exam: Normal Respiratory Exam: Normal Respiratory: Positive: Normal breath sounds Cardiovascular Exam: Normal Abdominal Exam: Normal Abdomen Description: Positive: Nontender Bowel Sounds: Positive: Present Musculoskeletal Exam: Normal Neurological Exam: Normal Psychological Exam: Normal Skin Exam: Normal Abd Pain Male Course/Dx - Course Course Of Treatment: I called [facility] and they reported that there wasn't a MD electronic health records specialist for the ER. I called [facility] and [facility] and was told that a GI physician would be available to the ER if ER physician requested consult. I discussed this with Pt and he verbalized understanding and agreed to plan of care. Pt denied dizziness, weakness, palpitations, fever, chills, black and tarry stools. Pt stated that he had been at [place] ER prior to arrival to [facility] and said he did not want to wait there so, he was told to go to a . - Differential Dx/Clinical Impression Differential Diagnosis/HQI/PQRI: Other - esophageal bleed, GI bleed, Provider Diagnosis: Abdominal pain in male, Acute vomiting, Hx of esophageal varices - Physician Notification/Consults Discussed Patient Care With: Dr. Tracey Kraus - accepted pt Time Discussed With Above Provider: 13:50 Discharge ED - Sign-Out/Discharge Documenting (check all that apply): Patient Departure All imaging exams completed and their final reports reviewed: No Studies - Discharge Plan Condition: Stable Disposition: HOME-RECOMMEND TO ED Patient Education Materials: Acute Low Back Pain (ED), Hypotension (ED) Referrals: Tracey Younger [Primary Care Provider] - If Needed Additional Instructions: Please go directly to the closest emergency room. It is recommended that you do not drive. If your symptoms worsen, please call 911. - Billing Disposition and Condition Condition: STABLE Disposition: Home-Recommend to ED - Attestation Statements Provider Attestation: This patient was not seen by me. I was available for consult. Chart reviewed RL
== END 2019-08-17 13:52 | disposition home health service (06) ==
LOC: UCCORT 13:15
DX: R10.9 Unspecified abdominal pain (principal); R11.10 Vomiting, unspecified; I10 Essential (primary) hypertension; E11.9 Type 2 diabetes mellitus without complications; I25.2 Old myocardial infarction; Z87.19 Personal history of other diseases of the digestive system; Z87.891 Personal history of nicotine dependence; Z95.5 Presence of coronary angioplasty implant and graft; Z88.0 Allergy status to penicillin; Z88.5 Allergy status to narcotic agent; Z88.8 Allergy status to other drugs, medicaments and biological substances
CPT/HCPCS: 99212; G0463

== ENCOUNTER 2019-09-24 10:58 | Day surgery (SDC) | payer BC ==
[~2019-09-24 10:58] MED LIST changes: -Dexamethasone TAB* 4 MG PO ONE; -Famotidine IV* 10 MG/ML 2 ML (20 mg) IV ONE; +Lidocaine 1% w EPI 1:100,000* MDV 20 ML VIAL ONE; -Ondansetron ODT TAB* 4 MG PO ONE; +Sodium Bicarbonate 8.4% VIAL* 10 ML VIAL IV ONE
[2019-09-24] MEDS ORDERED: Bupivacaine 0.25% SDV PF* 10 ML VIAL INJ ONE (12:09)
[2019-09-24 12:27] VITALS: BP 150/77
--- NOTE | 2019-09-25 01:14 | OP ---
OPERATIVE REPORT: DATE OF OPERATION: 09/24/19 - CYNTH[place] DATE OF : 58 SURGEON: Dorian Malone MD [employer] BUSINESS ANALYST: ANUJ Pickett ANESTHESIOLOGIST: None. ANESTHESIA: Local only with 1% buffered lidocaine with epinephrine. PRE-OP DIAGNOSIS: Left trigger thumb. POST-OP DIAGNOSIS: Left trigger thumb. OPERATIVE PROCEDURE: Left trigger thumb release. ESTIMATED BLOOD LOSS: 5 mL. COMPLICATIONS: None. FINDINGS: See above and below. DESCRIPTION OF PROCEDURE: Mr. Foster was seen in the preoperative holding area. The correct side, site, and procedures were identified. We came back to the operating room. The area was prepped and draped in the usual fashion. I had already injected the 1% buffered lidocaine in the area. A time-out was performed. The arm was exsanguinated with the Esmarch and the tourniquet was inflated to 200 mmHg. I made a 1 cm transverse incision in the MP joint flexion crease. Full- thickness flaps were bluntly raised off the tendon sheath. Ragnell retractors were placed. A1 soto was incised longitudinally. The release was completed distally and proximally with the tenotomy scissors. I then had him flex the thumb multiple times. There was no more triggering. He had full range of motion. The wound was irrigated out. The skin was closed with 4-0 nylon suture. A little bit of 0.25% Marcaine was infiltrated in the area. The soft dressing was applied and he was taken to the recovery room in stable condition. [id number]/[facility] #: [id number] MTDD
== END 2019-09-24 12:36 | disposition home or self-care (01) ==
LOC: OREAST 10:58
PROVIDERS: ATTEND Orthopaedic Surgery Hand Surgery
DX: M65.312 Trigger thumb, left thumb (principal); E11.9 Type 2 diabetes mellitus without complications; Z79.84 Long term (current) use of oral hypoglycemic drugs; Z87.891 Personal history of nicotine dependence; I25.2 Old myocardial infarction; E78.5 Hyperlipidemia, unspecified; M19.90 Unspecified osteoarthritis, unspecified site; M79.7 Fibromyalgia
CPT/HCPCS: J3490